=== PATIENT | female | born 1985 | race Caucasian/White ===

== ENCOUNTER → 2017-01-01 | Day surgery (SDC) | payer OTHER ==
[~2017-01-01] VITALS: Ht 157.5 cm; Wt 64.4 kg
--- NOTE | 2017-01-01 10:40 | Operative Report ---
Operative/Inv Procedure Report Surgery Date: 01/01/17 Name of Procedure: suction D&C Pre-Operative Diagnosis: missed AB Post-Operative Diagnosis: same Estimated Blood Loss: less than 50ml Surgeon/Ceramic Tile Installer: EMILIANO BROWNING,CARLITOS Keene Anesthesia: tiva Specimens: poc in saline for chromosomes Complications: none Condition: good Operative Indication: Bone all look at them now Operative/Procedure Note Note: The patient was taken to the operating room and anesthesia was induced the patient was prepped and draped in usual sterile fashion a single-tooth tenaculum was placed on the anterior lip of the cervix the cervix was dilated with a Hegar dilator to #12 a curved #11suction curette was placed through the endocervical canal with a corkscrew motion suction was applied moderate amount of products of conception was removed. This was followed by a sharp curettage to a good rasp in all 4 quadrants once again the suction curette was passed PRODUCTS of conception were sent to pathology for examination in saline for chromosomes. Patient was given Pitocin the single-tooth tenaculum was removed examination showed the uterus to be firm hemostasis was good patient was then moved to recovery room in good condition Findings: 10 cm uterus Discharge Disposition: Same Day Admissions
== END ==
LOC: STS 01:19
DX: O02.1 Missed abortion (principal)
CPT/HCPCS: 36415; 88261; 88305; J2250; J2405

== ENCOUNTER 2017-12-24 10:04 | Inpatient (IN) | payer OTHER ==
[~2017-12-24] VITALS: Ht 157.5 cm; Wt 72.6 kg
[2017-12-24] MEDS ORDERED: PRENATAL MULTI1 EAC2 PO (11:35)
[2017-12-24] MEDS ORDERED: IRON18 MG PO (11:36)
[2017-12-24 12:58] LABS: ABSOLUTE BASOPHIL COUNT 0 /CUMM (0.0-0.2); ABSOLUTE EOSINOPHIL COUNT 0 /CUMM (0.0-0.7); ABSOLUTE GRANULOCYTE CT 5.7 /CUMM (1.4-6.5); ABSOLUTE LYMPH COUNT 1.5 /CUMM (1.2-3.4); ABSOLUTE MONOCYTE COUNT 0.5 /CUMM (0.10-0.60); BASOPHIL % 0.3 % (0.0-2.0); EOSINOPHIL % 0.5 % (0-5); GRANULOCYTE % 72.8 % (42.2-75.2); HEMATOCRIT 33.9 % (37-47); MEAN CORPUSCULAR HGB 29.3 PG (27.0-31.0); MEAN CORPUSCULAR VOLUME 86.2 FL (81.0-99.0); MEAN PLATELET VOLUME 7.7 FL (7.4-10.4); PLATELET COUNT 208 /CUMM (130-400); RBC DISTRIBUTION WIDTH 13.5 % (11.5-14.5); RED BLOOD CELL CT 3.93 /CUMM (4.20-5.40); WHITE BLOOD CELL COUNT 7.8 /CUMM (4.8-10.8)
--- NOTE | 2017-12-24 13:54 | History & Physical ---
General Information and HPI MD Statement: I have seen and personally examined FUENTES JEFF and documented this H&P. The patient is a 32 year old female at [40] weeks and [1] days gestation who presented with a chief complaint of [LOF]. Source of Information: patient Exam Limitations: no limitations History of Present Illness: 32yo, at 40 1/7wks, c/o LOF since midnight, denies ctxs pain, no VB, reports GFM. care started at 9 wks, elevated GCT, normal GTT, GBS negative.no other issues. Allergies/Medications Allergies: Coded Allergies: Penicillins (rash 12/31/16) Sulfa (Sulfonamide Antibiotics) (rash 12/31/16) Home Med list IRON (Unknown Strength) TABLET 25 MG PO DAILY ANEMIA (Reported) Pnv No.122/Iron/Folic Acid ( Multi Tablet) 27 MG IRON-800 MCG TABLET 1 TAB PO DAILY (Reported) Compliance With Home Meds: GOOD Past History application penetration tester History : 2 Para: 0 Last Menstrual Period: 03/18/2017 Estimated Delivery Date: 12/23/2017 Past application penetration tester History: non-contributory Medical History Blood Transfusion Hx: No Neurological: NONE EENT: NONE Cardiovascular: NONE Respiratory: NONE Gastrointestinal: NONE Hepatic: NONE Renal: NONE Musculoskeletal: NONE Psychiatric: NONE Endocrine: NONE Blood Disorders: NONE Cancer(s): NONE 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 EENTM: Reports: no symptoms. Cardiovascular: Reports: no symptoms. Respiratory: Reports: no symptoms. GI: Reports: no symptoms. Genitourinary: Reports: no symptoms. Musculoskeletal: Reports: no symptoms. Skin: Reports: no symptoms. Neurological/Psychological: Reports: no symptoms. Hematologic/Endocrine: Reports: no symptoms. Immunologic/Allergic: Reports: no symptoms. All Other Systems: Reviewed and Negative Exam & Diagnostic Data Last 24 Hrs of Vital Signs/I&O Intake & Output 12/24 1600 05/15 0800 05/15 0000 Intake Total Output Total Balance Patient 72.575 kg Weight Obstetric Exam Wgt Gained During : 21lbs Pelvimetry: adequate Dilation (cm): 2 Effacement (%): 50 Station: -2 Membranes: SROM Fluid: clear Fundal Height (cm): 40 Multiple Gestation? No Contractions: occasional #1 - FHR Baseline: 130 Category: 1 Estimated Weight: 3500g Presentation: vertex Patient for Induction? No Physical Exam: VSS General: NAd Abdomen: gravid, soft, nontender Ext: DCT (-) Labs Blood Type & Rh: O positive Antibody Screen: negative Hct/Hgb & Platelets #1: 11.5/35.4%,[id number] Hct/Hgb & Platelets #2: 10.7/32.5%,[id number] Rubella: immune VDRL #1: negative VDRL #2: negative HbsAg: negative HIV #1: negative HIV #2 negative 1 Hr P 3 Hr PG: nl Group B Strep: negative Initial Ultrasound: IUP at 9 wks Anatomy Ultrasound: nl Genetic Testing: nl Last 24 Hrs of Labs/Roland: Laboratory Tests 12/24/17 1123: CBC w Diff NO MAN DIFF REQ, RBC 3.93 L, MCV 86.2, MCH 29.3, MCHC 34.0, RDW 13.5 , MPV 7.7, Gran % 72.8, Lymphocytes % 19.4 L, Monocytes % 7.0, Eosinophils % 0.5, Basophils % 0.3, Absolute Granulocytes 5.7, Absolute Lymphocytes 1.5, Absolute Monocytes 0.5, Absolute Eosinophils 0, Absolute Basophils 0, Urinalysis LIGHT H, Urine Color YEL, Urine Clarity HAZY H, Urine pH 6.0, Ur Specific [place] 1.025, Urine Protein NEG, Urine Ketones NEG, Urine Nitrite NEG, Urine Bilirubin NEG, Urine Urobilinogen 0.2, Ur Leukocyte Esterase NEG, Ur Microscopic SEDIMENT EXAMINED, Urine RBC 1-3, Urine WBC 1-3 H, Ur Epithelial Cells MOD H, Urine Bacteria MANY H, Urine Mucus FEW, Urine Hemoglobin NEG, Urine Glucose NEG 12/24/17 1019: Membrane Rupture POSITIVE Assessment/Plan Assessment/Plan: 32yo, 40 1/7wks, SROM 1.admit pt, admission labs 2. will monitor closley, if no spontaneouse labor, will start pitocin for IOL/ augmentation, R/B/A of IOL/augmentation of labor d/w pt in detail, she understand and agreed. As Ranked By This Provider Problem List: 1. 2. SROM (spontaneous rupture of membranes) Core Measures Venous Thromboembolism VTE Risk Factors / No Mechanical VTE Prophylaxis d/t LowRisk-No Interven Req'd No VTE Pharm Prophylaxis d/t LowRisk-No Interven Req'd Attending MD Review Statement Attending Statement Attending MD Statement: examined this patient, discussed with family, discussed w/nursing
--- NOTE | 2017-12-24 18:13 | PN- OBGYN ---
Surgical Brief Attending Note Brief Attending Note: pt c/o ctx pain, she was using Nitrous Oxide for pain relief, request epidural, pitocin started at 1:30PM, current dose is 12 mU/min on TOCO: ctxs q 2-3 min, FHR baseline 130, moderate variability, + acels, no decels cervix 7cm/90/-1 (by RN) anesthesia informed, will monitor closely
--- NOTE | 2017-12-24 21:46 | PN- OBGYN ---
Surgical Brief Attending Note Brief Attending Note: pt is comfortable with epidural, no complaints. on TOCO: ctxs q 2-3 min, FHR cat I cervix 7cm/90%/-2. will continue current management, monitor closely
--- NOTE | 2017-12-25 03:09 | Labor & Delivery Summary ---
Delivery Summary Vaginal Delivery: Vaginal: vertex Episiotomy/Lacerations: Episiotomy/Lacerations: 2N DEGREE Type: 2ND DEGREE, RIGHT LABIAL SUPERFICIAL Repair: 3-0 VICRYL 4-0 MONOCRYL Anesthesia: EPIDURAL, LOCAL Placenta: Placenta: spontanteous, normal, 3 vessel Anesthesia: EPIDURAL Baby's Weight: [id number] Apgars - 1 Min: 9 Apgars - 5 Min: 9 Additional Comments: Patient fully dilated , pushed well, spontaneously delivered of viable female at cephalic presentation, CHRISTOPHER position, head delivered atraumatically, Krystin maneuver was used to delivered anterior shoulder, posterior and rest of the body delivered without difficulty, baby vigorous and cried. Placenta delivered spontaneously, intact, three-vessel cord. Second-degree laceration repaired with 3-0 Vicryl using standard technique, right labial superficial laceration repair with 4-0 Monocryl. Patient tolerated the procedure well, she was in recovery room in stable condition.
[2017-12-26 11:20] LABS: ABSOLUTE BASOPHIL COUNT 0 /CUMM (0.0-0.2); ABSOLUTE EOSINOPHIL COUNT 0.1 /CUMM (0.0-0.7); ABSOLUTE GRANULOCYTE CT 6.6 /CUMM (1.4-6.5); ABSOLUTE LYMPH COUNT 1.7 /CUMM (1.2-3.4); ABSOLUTE MONOCYTE COUNT 0.5 /CUMM (0.10-0.60); BASOPHIL % 0.5 % (0.0-2.0); GRANULOCYTE % 74.1 % (42.2-75.2); HEMATOCRIT 32.8 % (37-47); MEAN CORPUSCULAR HGB 29.5 PG (27.0-31.0); MEAN CORPUSCULAR HGB CONC 33.6 G/DL (33.0-37.0); MEAN CORPUSCULAR VOLUME 87.9 FL (81.0-99.0); MEAN PLATELET VOLUME 7.9 FL (7.4-10.4); PLATELET COUNT 186 /CUMM (130-400); RBC DISTRIBUTION WIDTH 13.7 % (11.5-14.5); RED BLOOD CELL CT 3.73 /CUMM (4.20-5.40); WHITE BLOOD CELL COUNT 8.9 /CUMM (4.8-10.8)
--- NOTE | 2017-12-26 12:03 | PN- OBGYN ---
Surgical Brief Attending Note Brief Attending Note: PPD#1 pt feels well, no complaints, tolerate diet, void without difficulties PE: VSS CV RRR Lungs CTA B/L Abdomen: soft, nontender, uterus firm, fundus below umbilicus, lochia mild Ext: DCT (-) A/P: 32yo, s/p , PPD#1 1. encourage ambualtion and 2. RT PP care
[2017-12-27] MEDS ORDERED: IBUPROFEN800 M1 PO (07:44)
--- NOTE | 2017-12-27 07:50 | PN- Post Delivery/GYN ---
Subjective Subjective: feeling well Review of Systems Constitutional: Reports: no symptoms. EENTM: Denies: blurred vision, double vision, visual changes. Cardiovascular: Denies: chest pain, edema. Respiratory: Denies: cough. Gastrointestinal: Denies: abdominal pain, nausea, vomiting. Neurological/Psychological: Denies: anxiety, depressed. Objective Last 24 Hrs of Vital Signs/I&O vss Physical Exam General Appearance Alert, Oriented X3, Cooperative, No Acute Distress Cardiovascular Regular Rate Lungs Clear to Auscultation Abdomen Soft, fundus firm Extremities No Edema Current Medications: Current Medications Sig/Elise Start time Last Medication Dose Route Stop Time Status Admin Acetaminophen 650 MG Q4P PRN 12/25 031 AC PO Docusate Sodium 100 MG BID PRN 12/25 031 AC PO Ibuprofen 800 MG .STK-MED ONE 12/26 1837 DC PO 12/26 1838 Ibuprofen 800 MG .STK-MED ONE 12/26 1344 DC PO 12/26 1345 Ibuprofen 800 MG Q6P PRN 12/25 0315 AC 12/27 PO 0051 Lactated Ringer's 1,000 ML Q8H 12/24 1100 DC 12/24 IV 1536 Methylergonovine 200 MCG Q4P PRN 12/25 0315 AC Maleate PO Last 24 Hrs of Labs/Roland: Laboratory Tests 12/26/17 0905: CBC w Diff NO MAN DIFF REQ, RBC 3.73 L, MCV 87.9, MCH 29.5, MCHC 33.6, RDW 13.7 , MPV 7.9, Gran % 74.1, Lymphocytes % 18.7 L, Monocytes % 5.7, Eosinophils % 1.0, Basophils % 0.5, Absolute Granulocytes 6.6 H, Absolute Lymphocytes 1.7, Absolute Monocytes 0.5, Absolute Eosinophils 0.1, Absolute Basophils 0 Assessment/Plan Assessment/Plan ppd#2 vss afebrile plan d/c home Problem List: 1. SROM (spontaneous rupture of membranes) 2. Attending MD Review Statement Attending Statement Attending MD Statement: examined this patient, discussed with family, discussed with nursing
== END 2017-12-27 10:47 | DRG 775 ==
LOC: CBCO 10:04 → GNO 10:39
PROVIDERS: Obstetrics & Gynecology
PROC: 0KQM0ZZ Repair Perineum Muscle, Open Approach (ICD-10-PCS; principal; 2017-12-25)
PROC: 10E0XZZ Delivery of Products of Conception, External Approach (ICD-10-PCS; principal; 2017-12-25)
DX: O70.1 Second degree perineal laceration during delivery (principal); Z37.0 Single live birth; Z3A.40 40 weeks gestation of pregnancy; Z88.0 Allergy status to penicillin; Z88.2 Allergy status to sulfonamides
CPT/HCPCS: GNOP; GNOS; 81001; 84112; 87086; J0131; J2210; J7120